=== PATIENT | female | born 1975 | race Caucasian/White ===

== ENCOUNTER 2022-10-14 19:34 | Emergency (ER) | payer OTHER ==
[2022-10-14 19:42] VITALS: BP 128/85; PULSE 65; RESP 18; TEMP 97.6; BMI 30.9
[2022-10-14] MEDS ORDERED: SODIUM CHLORIDE 0.9% 500 ML INFUS.BAG IV ONE (21:59)
[2022-10-14 22:26] LABS: BASO % 0.6 % (0-2.0); HEMATOCRIT 38.1 % (32.4-45.2); HEMOGLOBIN 12.4 GM/dL (10.7-15.3); LYMPH % 11.7 % (8-40); MCH 25.8 pg (25.7-33.7); MCHC 32.7 g/dl (32.0-36.0); MEAN CELL VOLUME 78.9 fl (80-96); MEAN PLT VOLUME 7.9 fl (7.5-11.1); MONO % 4.9 % (3.8-10.2); NEUT % 82.8 % (42.8-82.8); PLATELET COUNT 316 10^3/uL (134-434); RBC 4.82 M/mm3 (3.60-5.2); RDW 15.4 % (11.6-15.6); WHITE BLOOD COUNT 12.3 K/mm3 (4.0-10.0)
[2022-10-14 22:40] LABS: ALBUMIN 3.5 g/dl (3.4-5.0); BLOOD UREA NITROGEN 14.4 mg/dL (7-18); CALCIUM 9.2 mg/dL (8.5-10.1)
[2022-10-14 22:43] LABS: CREATININE 0.9 mg/dL (0.55-1.3)
[2022-10-14 22:45] LABS: BILIRUBIN,TOTAL 0.2 mg/dL (0.2-1); TOT PROT 7.5 g/dl (6.4-8.2)
[2022-10-14 23:33] LABS: EPI CELLS 27 /uL (0-25.1); HYALINE CASTS 0 /uL (0-3.1); URINE APPEARANCE CLEAR; URINE BACTERIA 1254 /uL (0-1359); URINE BILIRUBIN NEGATIVE (NEGATIVE); URINE COLOR YELLOW; URINE GLUCOSE (UA) NEGATIVE (NEGATIVE); URINE KETONE NEGATIVE (NEGATIVE); URINE LEUK ESTERASE NEGATIVE (NEGATIVE); URINE NITRITE NEGATIVE (NEGATIVE); URINE PROTEIN NEGATIVE (NEGATIVE); URINE RBC 28 /uL (0-23.9); URINE UROBILINOGEN 0.2 mg/dL (0.2-1.0); URINE WBC 5 /uL (0-25.8)
== END 2022-10-15 01:35 | disposition home or self-care (01) ==
LOC: JER 19:34
DX: R42 Dizziness and giddiness (principal)
CPT/HCPCS: 36415; 70450-TC; 80053; 81003; 84484; 85025; 87086; 93005; 93010; 99285-25

== ENCOUNTER 2022-10-22 20:44 | Emergency (ER) | payer OTHER ==
[2022-10-22 20:54] VITALS: RESP 18; TEMP 98; BMI 30.9
[2022-10-22] MEDS ORDERED: KETOROLAC TROMETHAMINE 30 MG/1 ML VIAL IVPUSH ONE (23:54)
[2022-10-22] MEDS ORDERED: METOCLOPRAMIDE HCL INJECTION 10 MG/2 ML VIAL IVPUSH ONE (23:54)
[2022-10-22] MEDS ORDERED: SODIUM CHLORIDE 1,000 ML IV STA (23:54)
[2022-10-23] MEDS ORDERED: KETOROLAC TROMETHAMINE 30 MG/1 ML VIAL ONE (00:03)
[2022-10-23] MEDS ORDERED: METOCLOPRAMIDE HCL INJECTION 10 MG/2 ML VIAL ONE (00:03)
[2022-10-23 00:43] LABS: PH,URINE 5.5 (5.0-8.0); URINE APPEARANCE CLEAR; URINE BILIRUBIN NEGATIVE (NEGATIVE); URINE COLOR YELLOW; URINE GLUCOSE (UA) NEGATIVE (NEGATIVE); URINE KETONE NEGATIVE (NEGATIVE); URINE LEUK ESTERASE NEGATIVE (NEGATIVE); URINE NITRITE NEGATIVE (NEGATIVE); URINE PROTEIN NEGATIVE (NEGATIVE); URINE UROBILINOGEN 0.2 mg/dL (0.2-1.0)
[2022-10-23 01:01] LABS: BASO % 0.5 % (0-2.0); EOS % 3.4 % (0-4.5); HEMATOCRIT 40.4 % (32.4-45.2); HEMOGLOBIN 12.9 GM/dL (10.7-15.3); LYMPH % 29.4 % (8-40); MCH 25.3 pg (25.7-33.7); MCHC 32.1 g/dl (32.0-36.0); MEAN CELL VOLUME 78.9 fl (80-96); MEAN PLT VOLUME 7.7 fl (7.5-11.1); NEUT % 60.7 % (42.8-82.8); PLATELET COUNT 325 10^3/uL (134-434); RBC 5.11 M/mm3 (3.60-5.2); RDW 15.6 % (11.6-15.6); WHITE BLOOD COUNT 7.1 K/mm3 (4.0-10.0)
[2022-10-23 01:12] LABS: CALCIUM 9.6 mg/dL (8.5-10.1)
[2022-10-23 01:13] LABS: ALBUMIN 3.6 g/dl (3.4-5.0)
[2022-10-23 01:14] LABS: BLOOD UREA NITROGEN 10.1 mg/dL (7-18)
[2022-10-23 01:17] LABS: BILIRUBIN,TOTAL 0.3 mg/dL (0.2-1)
[2022-10-23 01:18] LABS: TOT PROT 7.4 g/dl (6.4-8.2)
[2022-10-23 01:41] VITALS: BP 118/72; PULSE 78
== END 2022-10-23 01:41 | disposition home or self-care (01) ==
LOC: JER 20:44
PROC: 3E033GC Introduction of Other Therapeutic Substance into Peripheral Vein, Percutaneous Approach (ICD-10-PCS; principal; 2022-10-22)
DX: G43.909 Migraine, unspecified, not intractable, without status migrainosus (principal)
CPT/HCPCS: 36415; 80053; 81003; 85025; 87086; 99284-25